=== PATIENT | male | born 1990 | race Caucasian/White ===

== ENCOUNTER 2020-12-16 09:45 | Outpatient (CLI) | payer OTHER, SELFPAY | END 2020-12-16 09:46 | disposition home or self-care (01) | LOC: CHSIMG 09:49 | PROVIDERS: PCP Family Medicine; Visit Provider Nurse Practitioner Family | DX: G43.909 Migraine, unspecified, not intractable, without status migrainosus (principal); Z53.8 Procedure and treatment not carried out for other reasons | CPT/HCPCS: 99199 ==